=== PATIENT | female | born 1990 | race African-American/Black ===

== ENCOUNTER → 2019-01-27 | Outpatient (REF) | payer OTHER ==
[2019-01-27 13:39] LABS: BASO % 0.8 % (0.0-1.0); EOS # 0.1 10^3/uL (0.0-0.50); EOS % 2.6 % (0.0-3.0); HEMATOCRIT 41.4 % (36.0-47.0); HEMOGLOBIN 13.6 g/dl (12.0-15.5); LYMPH # 1.9 10^3/uL (1.5-6.5); LYMPH % 48.3 % (24.0-44.0); MEAN CORPUSCULAR HEMOGLOBIN 28.7 pg (27.0-33.0); MEAN CORPUSCULAR HGB CONC 32.9 g/dl (32.0-36.5); MEAN CORPUSCULAR VOLUME 87.3 fl (80.0-96.0); MONO # 0.3 10^3/uL (0.0-0.8); MONO % 7.5 % (0.0-5.0); NEUTROPHILS # 1.6 10^3/uL (1.8-7.7); NEUTROPHILS % 40.5 % (36.0-66.0); PLATELET COUNT, AUTOMATED 225 10^3/uL (150-450); RED BLOOD COUNT 4.74 10^6/uL (4.00-5.40); WHITE BLOOD COUNT 3.9 10^3/uL (4.0-10.0)
[2019-01-27 14:01] LABS: HEMOGLOBIN A1c 5.4 %
[2019-01-27 14:21] LABS: ERYTHROCYTE SEDIMENTATION RATE 8 mm/hr (0-20)
[2019-01-27 14:40] LABS: ALBUMIN 4.2 GM/DL (3.2-5.2); ALT/SGPT 24 U/L (12-78); BILIRUBIN,TOTAL 1.4 MG/DL (0.2-1.0); BLOOD UREA NITROGEN 9 MG/DL (7-18); CALCIUM LEVEL 8.6 MG/DL (8.5-10.1); CARBON DIOXIDE LEVEL 24 MEQ/L (21-32); CHLORIDE LEVEL 107 MEQ/L (98-107); CREATININE FOR GFR 0.81 MG/DL (0.55-1.30); FOLATE 18.7 NG/ML; GLOMERULAR FILTRATION RATE > 60.0 (>60); GLUCOSE, FASTING 79 MG/DL (70-100); RHEUMATOID FACTOR QUANT < 10.0 IU/ML (<15.0); SODIUM LEVEL 142 MEQ/L (136-145); THYROID STIMULATING HORMONE 0.652 uIU/ML (0.358-3.740); TOTAL 25(OH) VITAMIN D 36.6 NG/ML (30.0-100.0); TOTAL PROTEIN 7.8 GM/DL (6.4-8.2); VITAMIN B12 LEVEL 687 PG/ML
[2019-01-31 09:50] LABS: DRVV SCREEN 42.6 SEC
== END ==
LOC: M LABNEURO 09:01
PROVIDERS: ATTEND Psychiatry & Neurology Neurology
DX: R41.9 Unspecified symptoms and signs involving cognitive functions and awareness (principal); R25.1 Tremor, unspecified; R51 Headache

== ENCOUNTER 2021-04-01 08:41 | Outpatient (CLI) | payer OTHER ==
[~2021-04-01] VITALS: Ht 170.2 cm; Wt 69.8 kg
[2021-04-01] MEDS ORDERED: PRENTAB9 PO (08:58)
[2021-04-01] MEDS ORDERED: ACET325C5 PO (08:58)
[2021-04-01 09:07] VITALS: BP 106/55
[2021-04-01] MEDS ORDERED: LR 1,000 ML IV SCH (09:25)
[2021-04-01] MEDS ORDERED: LR 1,000 ML IV ONE (09:25)
[2021-04-01 10:00] LABS: HEMATOCRIT 29.5 % (36.0-47.0); HEMOGLOBIN 9.9 g/dl (12.0-15.5); MEAN CORPUSCULAR HEMOGLOBIN 28.9 pg (27.0-33.0); MEAN CORPUSCULAR HGB CONC 33.6 g/dl (32.0-36.5); MEAN CORPUSCULAR VOLUME 86.3 fl (80.0-96.0); PLATELET COUNT, AUTOMATED 172 10^3/uL (150-450); RED BLOOD COUNT 3.42 10^6/uL (4.00-5.40); WHITE BLOOD COUNT 9.3 10^3/uL (4.0-10.0)
[2021-04-01 10:26] LABS: ALT/SGPT 18 U/L (12-78); BILIRUBIN,TOTAL 0.6 MG/DL (0.2-1.0); BLOOD UREA NITROGEN 5 MG/DL (7-18); CALCIUM LEVEL 9.1 MG/DL (8.5-10.1); CARBON DIOXIDE LEVEL 25 MEQ/L (21-32); CHLORIDE LEVEL 106 MEQ/L (98-107); CREATININE FOR GFR 0.52 MG/DL (0.55-1.30); GLOMERULAR FILTRATION RATE > 60.0 (>60); GLUCOSE, FASTING 101 MG/DL (70-100); POTASSIUM SERUM 3.6 MEQ/L (3.5-5.1); SODIUM LEVEL 138 MEQ/L (136-145); TOTAL PROTEIN 6.2 GM/DL (6.4-8.2)
--- NOTE | 2021-04-01 10:39 | IPNPDOC ---
Obstetrical Progress Note Date of Service April 01, 2021 Subjective 30 yo [id number] at 34w3d with ROS of 10 MAY 2021 presents to L&D with complaints for nausea, vomiting, chills, and body aches after her second COVID immunization yesterday. She reports that she was vomiting all night last night and now her symptoms have resolved except for body aches. She denies contractions, leaking of fluid, vaginal bleeding, and reports positive movement. Objective Vital Signs Date Time Temp Pulse Resp B/P (MAP) Pulse Ox O2 Delivery O2 Flow Rate FiO2 04/01/21 09:07 98.4 84 18 106/55 (72) Assessment Heart Rate (FHR): 135 Variability: Moderate Accelerations: Present Decelerations: None Tocometer Contractions: Yes Duration: other (occasional contractions with uterine irritability noted) Assessment and Plan Age: 30 : 3 Term: 0 Pre-term: 0 Abortions: 2 Livin EGA at Admission: 34 (+3) Weeks & Days 34w3d Status: Reassuring Anticipate: Other (Discharge to home, certified not in labor) Additional Comments [facility] and PTL precautions discussed Recommended to keep all appointments with [facility] [facility] Recommended for SIQ to recover Return to L&D if symptoms worsen or they persist DAYA LAKHANI CNM April 01, 2021 10:39
[2021-04-01 10:46] VITALS: BP 107/53
== END 2021-04-01 11:21 | disposition home or self-care (01) ==
LOC: M LDO 08:41
PROVIDERS: ATTEND Registered Nurse Maternal Newborn
DX: O21.8 Other vomiting complicating pregnancy (principal); Z3A.34 34 weeks gestation of pregnancy; Z88.1 Allergy status to other antibiotic agents; Z88.8 Allergy status to other drugs, medicaments and biological substances
CPT/HCPCS: 36415; 59025; 80053; 85027; 96360; 96361; G0378; G0463

== ENCOUNTER 2021-07-23 18:08 | Emergency (ER) | payer OTHER ==
[~2021-07-23] VITALS: Ht 170.2 cm; Wt 61.4 kg
[~2021-07-23 18:08] MED LIST: ACET325C5 PO; PRENTAB9 PO
[2021-07-23 23:11] LABS: HEMATOCRIT 43.4 % (36.0-47.0); HEMOGLOBIN 14.2 g/dl (12.0-15.5); MEAN CORPUSCULAR HEMOGLOBIN 27.7 pg (27.0-33.0); MEAN CORPUSCULAR HGB CONC 32.7 g/dl (32.0-36.5); MEAN CORPUSCULAR VOLUME 84.8 fl (80.0-96.0); PLATELET COUNT, AUTOMATED 255 10^3/uL (150-450); RED BLOOD COUNT 5.12 10^6/uL (4.00-5.40); WHITE BLOOD COUNT 6.1 10^3/uL (4.0-10.0)
[2021-07-23 23:38] LABS: BLOOD UREA NITROGEN 13 MG/DL (7-18); CALCIUM LEVEL 9.1 MG/DL (8.5-10.1); CARBON DIOXIDE LEVEL 27 MEQ/L (21-32); CHLORIDE LEVEL 110 MEQ/L (98-107); GLOMERULAR FILTRATION RATE > 60.0 (>60); GLUCOSE, FASTING 87 MG/DL (70-100); POTASSIUM SERUM 4.6 MEQ/L (3.5-5.1); SODIUM LEVEL 142 MEQ/L (136-145)
[2021-07-24 00:55] VITALS: BP 148/88
[2021-07-24] MEDS ORDERED: KETOROLAC 30 MG/ML 1ML VIAL IV ONE (02:05)
[2021-07-24] MEDS ORDERED: METOCLOPRAMIDE INJ 10MG/2ML VIAL (J2765 PER 1) IV ONE (02:05)
== END 2021-07-24 02:20 | disposition left against medical advice (07) ==
LOC: M ED 18:08
DX: R03.0 Elevated blood-pressure reading, without diagnosis of hypertension (principal); S02.81XA Fracture of other specified skull and facial bones, right side, initial encounter for closed fracture; X58.XXXA Exposure to other specified factors, initial encounter; Y92.9 Unspecified place or not applicable; Y93.9 Activity, unspecified; Y99.9 Unspecified external cause status; Z53.9 Procedure and treatment not carried out, unspecified reason; Z79.899 Other long term (current) drug therapy; Z88.1 Allergy status to other antibiotic agents; Z88.8 Allergy status to other drugs, medicaments and biological substances